=== PATIENT | female | born 1965 | race Caucasian/White ===

== ENCOUNTER 2023-02-13 08:49 | Emergency (ER) | payer OTHER ==
[~2023-02-13] VITALS: Ht 167.6 cm; Wt 99.8 kg
[2023-02-13 09:00] VITALS: BP_SYST 158; PULSE 81; RESP 18; TEMP 97.9; O2SAT 97
[2023-02-13] MEDS ORDERED: HYDROcodone/ACETAMIN 10-325 MG TAB PO ONE (09:15)
[2023-02-13] MEDS ORDERED: KETOROLAC TROMETHAMINE 60 MG/2 ML VIAL IM ONE (09:15)
[2023-02-13 09:29] LABS: BASOPHILS # (AUTO) 0.1 K/uL (0.0-0.2); BASOPHILS % (AUTO) 0.8 % (0.0-2.0); EOSINOPHILS # (AUTO) 0.3 K/uL (0.0-0.4); EOSINOPHILS % (AUTO) 2.7 % (0.0-4.0); HEMATOCRIT 42.3 % (36-48); LYMPHOCYTES # (AUTO) 2.9 K/uL (1.0-5.5); LYMPHOCYTES % (AUTO) 29.8 % (20.5-51.5); MEAN CORPUSCULAR HEMOGLOBIN 29 pg (27-31); MEAN CORPUSCULAR HGB CONC 33 % (32-36); MEAN CORPUSCULAR VOLUME 88 fL (79.0-98.0); MONOCYTES # (AUTO) 0.6 K/uL (0.0-1.0); NEUTROPHILS # (AUTO) 5.8 K/uL (1.8-7.7); NEUTROPHILS % (AUTO) 60.7 % (40.0-70.0); PLATELET COUNT (AUTO) 352 K/uL (130-430); RED BLOOD CELL COUNT(AUTO) 4.79 MIL/uL (4.2-6.2); RED CELL DISTRIBUTION WIDTH 13.2 % (9.0-15.0); WHITE BLOOD COUNT (AUTO) 9.6 K/uL (4.8-10.8)
[2023-02-13 09:33] LABS: ERYTHROCYTE SEDIMENTATION RATE 12 MM/HR (0-20)
[2023-02-13 09:39] LABS: CALCIUM 8.7 mg/dL (8.4-11.0); CREATININE 0.85 mg/dL (0.55-1.30); POTASSIUM 4.3 mmol/L (3.5-5.1)
[2023-02-13 09:54] LABS: ALBUMIN 3.8 g/dL (3.4-4.8); TOTAL BILIRUBIN 0.5 mg/dL (0.0-1.0); TOTAL PROTEIN, SERUM 7.2 g/dL (6.4-8.3); URIC ACID 5.2 mg/dL (2.4-7.0)
[2023-02-13] MEDS ORDERED: HYDR-3927 PO (10:54)
[2023-02-13] MEDS ORDERED: IBUP-1969 PO (10:54)
[2023-02-13 11:23] VITALS: BP_SYST 146; PULSE 70; RESP 15; TEMP 97.1; O2SAT 97
== END 2023-02-13 11:21 | disposition home or self-care (01) ==
LOC: SED 08:49
DX: M75.01 Adhesive capsulitis of right shoulder (principal); M25.511 Pain in right shoulder; Z88.2 Allergy status to sulfonamides; Z79.899 Other long term (current) drug therapy
CPT/HCPCS: 99284; 80053; 84550; 85025; 85651; 36415; 73030; 96372; 82397; J1885